=== PATIENT | female | born 1960 | race Caucasian/White ===

== ENCOUNTER 2017-11-27 09:49 | Emergency (ER) | payer OTHER ==
[~2017-11-27] VITALS: Ht 160 cm; Wt 136.8 kg
[2017-11-27 09:52] VITALS: TEMP 36.8; Ht 160 cm; Wt 136.8 kg
[2017-11-27 10:06] VITALS: O2SAT 97
[2017-11-27] MEDS ORDERED: SODIUM CHLORIDE 0.9% 500ML 500 ML IV STA (10:17)
--- NOTE | 2017-11-27 10:43 | DIAGNOSTIC IMAGING REPORT ---
CHEST ONE VIEW PORTABLE CLINICAL HISTORY: CHEST PAIN dyspnea. Hypertension. COMPARISON STUDY: No previous studies for comparison. FINDINGS: The bones soft tissues and hemidiaphragms are normal. The cardiomediastinal silhouette is normal. The lungs are clear. The pulmonary vasculature is normal. IMPRESSION: Negative chest. The above report was generated using voice recognition software. It may contain grammatical, syntax or spelling errors. Electronically signed by: Vlad Ortez M.D. 11/27/2017 10:42 AM Dictated Date/Time: 11/27/2017 10:42 AM
[2017-11-27 10:53] LABS: BASO % 0.3 %; BASO ABS # 0.02 K/uL (0-0.2); EOS % 1.7 %; EOS ABS # 0.11 K/uL (0-0.5); HEMATOCRIT 44.7 % (37-47); HEMOGLOBIN 15.1 g/dL (12.0-16.0); IG# 0.02 K/uL (0.00-0.02); MEAN CELL VOLUME 85.8 fL (80-100); MEAN CORPUSCULAR HGB CONC 33.8 g/dl (32-36); MEAN PLATELET VOLUME 11.6 fL (7.4-10.4); MONO % 6.4 %; MONO ABS # 0.42 K/uL (0.11-0.59); NEUT % 68.3 %; NEUT ABS # 4.46 K/uL (1.4-6.5); PLATELET COUNT 257 K/uL (130-400); RED CELL DISTRIBUTION WIDTH SD 47.3 fL (36.4-46.3); WHITE BLOOD COUNT 6.53 K/uL (4.8-10.8)
[2017-11-27 11:06] LABS: ALBUMIN 3.7 gm/dl (3.4-5.0); ALKALINE PHOSPHATASE 77 U/L (45-117); ALT/SGPT 29 U/L (12-78); AST/SGOT 16 U/L (15-37); BLOOD UREA NITROGEN 15 mg/dl (7-18); CALCIUM 9.2 mg/dl (8.5-10.1); CARBON DIOXIDE 25 mmol/L (21-32); CREATININE 0.77 mg/dl (0.60-1.20); GLUCOSE 133 mg/dl (70-99); LIPASE 138 U/L (73-393); PHOSPHORUS 2.5 mg/dl (2.5-4.9); POTASSIUM 3.7 mmol/L (3.5-5.1); SODIUM 138 mmol/L (136-145); TOTAL PROTEIN 7.5 gm/dl (6.4-8.2)
--- NOTE | 2017-11-27 11:24 | EMERGENCY ROOM VISIT NOTE ---
History Report prepared by Lavern: Sam Rosa Under the Supervision of: Dr. John Baxter M.D. First contact with patient: 10:01 Chief Complaint: HYPERTENSION Stated Complaint: HIGH BP,IRREGULAR HEART BEAT History of Present Illness The patient is a 57 year old female who presents to the Emergency Room after referral from Urgent Care for abnormal EKG findings and hypertension. The patient and her family at bedside sate that she reported to Urgent Care this morning due to a redness and "stickiness" in her right eye. The patient was given antibiotic drops. At Urgent Care the patient's blood pressure was elevated so they recorded an EKG. The EKG showed an irregularity, so they referred her to the emergency department. The patient admits that she has not followed with her primary care physician in several years. The patient denies any fevers, chills, cough, chest pain, shortness of breath, nausea, or vomiting. Source of History: patient Onset: this morning Position: eye (right) Quality: other (redness) Timing: other (EKG findings noticed this morning) Associated Symptoms: No chest pain, No SOB Review of Systems See HPI for pertinent positives and negatives. A total of ten systems were reviewed and were otherwise negative. Family History Cancer Diabetes mellitus Gallbladder disease Heart disease Hypertension Kidney disease Kidney stones Social History Smoking Status: Never Smoker Marital Status: single Housing Status: lives alone Occupation Status: employed Current/Historical Medications No Active Prescriptions or Reported Meds Allergies Coded Allergies: No Known Allergies (Unverified , 11/27/17) Physical Exam Vital Signs Date Time Temp Pulse Resp B/P (MAP) Pulse Ox O2 Delivery O2 Flow Rate FiO2 11/27/17 11:39 82 20 155/104 96 11/27/17 11:16 84 20 165/98 97 Room Air 11/27/17 11:07 80 20 184/112 97 Room Air 11/27/17 11:01 80 20 162/106 96 Room Air 11/27/17 10:29 90 18 184/120 96 Room Air 11/27/17 10:11 92 11/27/17 10:07 107 20 177/112 97 Room Air 11/27/17 10:06 97 Room Air 11/27/17 09:52 36.8 97 18 190/130 97 Room Air Physical Exam GENERAL: Awake, alert, fatigued-appearing, in no distress HENT: Normocephalic, atraumatic. Oropharynx unremarkable. Mucous membranes are dry. EYES: Scant scleral injection to the right eye. NECK: Supple. No nuchal rigidity. FROM. No JVD. RESPIRATORY: Clear to auscultation. CARDIAC: Regular rate, normal rhythm. Extremities warm and well perfused. Pulses equal. ABDOMEN: Obese. Soft, non-distended. No tenderness to palpation. No rebound or guarding. No masses. RECTAL: Deferred. MUSCULOSKELETAL: Chest examination reveals no tenderness. The back is symmetrical on inspection without obvious abnormality. There is no CVA tenderness to palpation. No joint edema. LOWER EXTREMITIES: Calves are equal size bilaterally and non-tender. No edema. No discoloration. NEURO: Normal sensorium. No sensory or motor deficits noted. SKIN: No rash or jaundice noted. Medical Decision & Procedures ER Provider Diagnostic Interpretation: Radiology results as stated below per my review and radiologist interpretation: CHEST ONE VIEW PORTABLE CLINICAL HISTORY: CHEST PAIN dyspnea. Hypertension. COMPARISON STUDY: No previous studies for comparison. FINDINGS: The bones soft tissues and hemidiaphragms are normal. The cardiomediastinal silhouette is normal. The lungs are clear. The pulmonary vasculature is normal. IMPRESSION: Negative chest. The above report was generated using voice recognition software. It may contain grammatical, syntax or spelling errors. Electronically signed by: Vlad Ortez M.D. 11/27/2017 10:42 AM Dictated Date/Time: 11/27/2017 10:42 AM Laboratory Results 11/27/17 10:25 Red Blood Count 5.21, Mean Corpuscular Volume 85.8, Mean Corpuscular Hemoglobin 29.0, Mean Corpuscular Hemoglobin Concent 33.8, Mean Platelet Volume 11.6, Neutrophils (%) (Auto) 68.3, Lymphocytes (%) (Auto) 23.0, Monocytes (%) (Auto) 6.4, Eosinophils (%) (Auto) 1.7, Basophils (%) (Auto) 0.3, Neutrophils # (Auto) 4.46, Lymphocytes # (Auto) 1.50, Monocytes # (Auto) 0.42, Eosinophils # (Auto) 0.11, Basophils # (Auto) 0.02 11/27/17 10:25 Test 11/27/17 10:25 White Blood Count 6.53 K/uL (4.8-10.8) Red Blood Count 5.21 M/uL (4.2-5.4) Hemoglobin 15.1 g/dL (12.0-16.0) Hematocrit 44.7 % (37-47) Mean Corpuscular Volume 85.8 fL (80-100) Mean Corpuscular Hemoglobin 29.0 pg (25-34) Mean Corpuscular Hemoglobin Concent 33.8 g/dl (32-36) Platelet Count 257 K/uL (130-400) Mean Platelet Volume 11.6 fL (7.4-10.4) Neutrophils (%) (Auto) 68.3 % Lymphocytes (%) (Auto) 23.0 % Monocytes (%) (Auto) 6.4 % Eosinophils (%) (Auto) 1.7 % Basophils (%) (Auto) 0.3 % Neutrophils # (Auto) 4.46 K/uL (1.4-6.5) Lymphocytes # (Auto) 1.50 K/uL (1.2-3.4) Monocytes # (Auto) 0.42 K/uL (0.11-0.59) Eosinophils # (Auto) 0.11 K/uL (0-0.5) Basophils # (Auto) 0.02 K/uL (0-0.2) RDW Standard Deviation 47.3 fL (36.4-46.3) RDW Coefficient of Variation 15.0 % (11.5-14.5) Immature Granulocyte % (Auto) 0.3 % Immature Granulocyte # (Auto) 0.02 K/uL (0.00-0.02) Anion Gap 9.0 mmol/L (3-11) Est Creatinine Clear Calc Drug Dose 110.9 ml/min Estimated GFR () 100.0 Estimated GFR (Non- 86.3 BUN/Creatinine Ratio 19.9 (10-20) Calcium Level 9.2 mg/dl (8.5-10.1) Phosphorus Level 2.5 mg/dl (2.5-4.9) Magnesium Level 1.8 mg/dl (1.8-2.4) Total Bilirubin 0.5 mg/dl (0.2-1) Direct Bilirubin 0.1 mg/dl (0-0.2) Aspartate Amino Transf (AST/SGOT) 16 U/L (15-37) Alanine Aminotransferase (ALT/SGPT) 29 U/L (12-78) Alkaline Phosphatase 77 U/L (45-117) Troponin I < 0.015 ng/ml (0-0.045) Total Protein 7.5 gm/dl (6.4-8.2) Albumin 3.7 gm/dl (3.4-5.0) Lipase 138 U/L (73-393) Laboratory results reviewed by me Medications Administered Medications (Trade) Dose Ordered Sig/Mariluz Route Start Time Stop Time Status Last Admin Dose Admin Sodium Chloride 500 ml @ 999 mls/hr Q31M STAT IV 11/27/17 10:17 11/27/17 10:47 DC 11/27/17 10:28 999 MLS/HR ECG Per My Interpretation Indication: palpitations (Referral for EKG changes), tachycardia, other (HTN) Rate (beats per minute): 98 Rhythm: sinus rhythm Findings: PVC, other (Normal axis, no acute ischemia) ED Course 1011: The patient was evaluated in room A9B. A complete history and physical exam was performed. 1134: I reevaluated the patient. Discussed results and discharge instructions: She verbalized understanding and agreement. The patient is ready for discharge. Medical Decision I reviewed the patient's past medical history, medications, and the nursing notes as described above. Differential diagnosis: Etiologies such as premature contractions, electrolyte abnormality, cardiac dysrhythmia, thyroid dysfunction, pulmonary embolism, infection, gastrointestinal, as well as others were entertained. The patient is a 57-year-old woman presents emergency department for evaluation of ectopy on EKG from urgent care after she presented there for evaluation for right eye injection per hpi. On arrival the patient is in no acute distress, afebrile stable vital signs. On exam patient appears clinically dry. Mild injection to the right sclera with no evidence of foreign body beneath the lids. Patient denies any foreign body sensation. Anterior chamber is grossly clear. Otherwise exam is unremarkable. EKG demonstrates occasional PVCs but otherwise no evidence of acute ischemia. Chest x-ray negative. Labs unremarkable including WBC within normal limits. Troponin negative. Chemistry unremarkable. The patient was given IV fluid hydration with improvement in her blood pressure suggesting component of mild dehydration contributing to her blood pressure. Right eye sx likely viral conjunctivitis although given discharge this morning patient was put on ophthalmic antibiotic drops. Reasonable to continue these as prescribed. Will follow with her PCP regarding her symptoms as well as continue monitoring and evaluation of her blood pressure. Findings and plan for follow-up reviewed with patient. Patient agreeable and d/c'd per discharge instructions. Medication Reconcilliation Current Medication List: was personally reviewed by me Blood Pressure Screening Patient's blood pressure: Elevated blood pressure Blood pressure disposition: Referred to PCP Impression Primary Impression: PVC's (premature ventricular contractions) Additional Impressions: Hypertension Dehydration Scribe Attestation The scribe's documentation has been prepared under my direction and personally reviewed by me in its entirety. I confirm that the note above accurately reflects all work, treatment, procedures, and medical decision making performed by me. Departure Information Dispostion Home / Self-Care Prescriptions No Active Prescriptions or Reported Meds Referrals No Doctor, Assigned (PCP) Patient Instructions ED Dehydration, ED Palpitations, Hypertension Control, My [facility] Additional Instructions Please follow up with your primary care physician in the next week for re- evaluation and monitoring and possible treatment of your high blood pressure. Otherwise, your exam, EKG, chest xray, and lab results did not show signs of an emergent condition at this time. Continue with your eyedrops prescribed at urgent care for your conjunctivitis. You may additionally use [id number] antihistamine such as Claritin or Zyrtec for symptom relief from itching. Drink plenty of fluids to ensure hydration. Return to the emergency department for worsening symptoms as described in the accompanying instructions. Problem Qualifiers
[2017-11-27 11:39] VITALS: BP 155/104; PULSE 82; O2SAT 96
== END 2017-11-27 11:39 | disposition home or self-care (01) ==
LOC: C.EDB 09:52 → C.EDA 11:39
DX: I49.3 Ventricular premature depolarization (principal); R03.0 Elevated blood-pressure reading, without diagnosis of hypertension; E86.0 Dehydration; Z82.49 Family history of ischemic heart disease and other diseases of the circulatory system